=== PATIENT | female | born 1995 | race Caucasian/White ===

== ENCOUNTER 2016-10-03 00:47 | Emergency (ER) | payer OTHER ==
[~2016-10-03] VITALS: Ht 152.4 cm; Wt 79.4 kg
[2016-10-03 00:52] VITALS: TEMP 37; Ht 152.4 cm; Wt 79.4 kg
--- NOTE | 2016-10-03 01:12 | EMERGENCY ROOM VISIT NOTE ---
History Report prepared by Williamibemanuel: Sveta Mccabe Under the Supervision of: Dr. Luis Marmolejo M.D. First contact with patient: 00:56 Chief Complaint: ANKLE PAIN Stated Complaint: INJURED ANKLE History of Present Illness The patient is a 21 year old female who presents to the Emergency Room with complaints of worsening left ankle pain after [place] the movie theatre this [place]. She rates her pain as a 6/10. The patient notes that she tripped down some steps several days ago and had injured this ankle slightly about two weeks ago. She denies any other injury. Source of History: patient Onset: this evening Position: ankle (left) Symptom Intensity: 6/10 Quality: other (ankle pain) Timing: worsening Note: She denies any other injury. Review of Systems See HPI for pertinent positives & negatives. A total of 10 systems reviewed and were otherwise negative. Past Medical & Surgical Medical Problems: (1) No Known Active Medical Problems Family History Cancer Diabetes mellitus Hypertension Social History Smoking Status: Never Smoker Marital Status: in relationship Housing Status: lives with roommate Occupation Status: employed Current/Historical Medications No Active Prescriptions or Reported Meds Allergies Coded Allergies: [place] (Verified Adverse Reaction, Intermediate, hives, 10/03/16) Physical Exam Vital Signs Date Time Temp Pulse Resp B/P Pulse Ox O2 Delivery O2 Flow Rate FiO2 10/03/16 01:40 108 18 145/98 98 10/03/16 00:52 37.0 123 20 146/90 100 Room Air Physical Exam GENERAL: Patient is a healthy-appearing well-nourished HEAD: Normocephalic atraumatic EYES: Ocular movements intact pupils equal and react to light OROPHARYNX mucous membranes are moist no exudates present no erythema or edema present NECK: Supple no nuchal rigidity CHEST: Good equal expansion LUNGS: Clear and equal to auscultation CARDIAC: Normal S1 and S2 ABDOMEN: Soft nontender no guarding BACK: No CVA tenderness EXTREMITIES: No pain upon palpation normal muscle strength in all groups no clubbing cyanosis or edema NEURO: Patient is following commands is answering questions appropriately. Alert and oriented x3 Cranial Nerves 2-12 grossly intact Medical Decision & Procedures ER Provider Diagnostic Interpretation: X-ray results as stated below per interpretation by me: 3 view of the left ankle: Shows no fracture, dislocation, or subluxation. ED Course 0058: Past medical records reviewed. The patient was evaluated in room C2. A complete history and physical examination was performed. 0112: Upon reexamination the patient is doing well. I discussed results and treatment plan with the patient. She verbalizes agreement and understanding. The patient is ready for discharge. Medical Decision The patient is a 21 year old female who presents to the ED with complaints of left ankle pain. Differential diagnoses include: ankle fracture, ankle dislocation, ankle subluxation. This is a 21-year-old female who presents emergency part complaining of ankle pain. The patient is refusing pain medication in the emergency department. X- rays do not show any evidence of fracture dislocation or subluxation. Based on these findings I felt the patient was comfortable enough to be discharged home. The patient was placed on crutches. Patient and significant other were in agreement with the treatment plan. [place] Drug Monitoring Program Search Results: patient reviewed within database Impression Primary Impression: Left ankle pain Scribe Attestation The scribe's documentation has been prepared under my direction and personally reviewed by me in its entirety. I confirm that the note above accurately reflects all work, treatment, procedures, and medical decision making performed by me. Departure Information Dispostion Home / Self-Care Prescriptions No Active Prescriptions or Reported Meds Referrals No Doctor, Assigned (PCP) Forms HOME CARE DOCUMENTATION FORM, IMPORTANT VISIT INFORMATION, School Instructions, Work Instructions Patient Instructions Ankle Sprain, ED Crutch Walking, ED RICE, [facility] Additional Instructions Follow up with DR Chavira's office Take 1000 mg Tylenol every 6 hours You have been examined and treated today on an emergency basis only. This is not a substitute for, or an effort to provide, complete comprehensive medical care. It is impossible to recognize and treat all injuries or illnesses in a single emergency department visit. It is therefore important that you follow up closely with your PCP. Call as soon as possible for an appointment. Thank you for your time and consideration. I look forward to speaking with you again soon. Please don't hesitate to call us if you have any questions. Problem Qualifiers Primary Impression: Left ankle pain Chronicity: acute Qualified Codes: M25.572 - Pain in left ankle and joints of left foot
[2016-10-03 01:40] VITALS: BP 145/98; PULSE 108; O2SAT 98
--- NOTE | 2016-10-03 07:02 | DIAGNOSTIC IMAGING REPORT ---
LEFT ANKLE MIN 3 VIEWS ROUTINE CLINICAL HISTORY: Pt c/o left ankle pain pain COMPARISON: None. DISCUSSION: The bones and joint spaces appear intact. There is no evidence of fracture, dislocation or bony disease. There is no evidence for soft tissue swelling. IMPRESSION: Negative study. Electronically signed by: Hank Borrego M.D. 10/03/2016 7:00 AM Dictated Date/Time: 10/03/2016 7:00 AM
== END 2016-10-03 01:41 | disposition home or self-care (01) ==
LOC: C.EDB 00:48 → C.EDC 01:41
DX: M25.572 Pain in left ankle and joints of left foot (principal); W10.9XXA Fall (on) (from) unspecified stairs and steps, initial encounter; Z83.3 Family history of diabetes mellitus; Z82.49 Family history of ischemic heart disease and other diseases of the circulatory system

== ENCOUNTER 2016-10-09 02:47 | Emergency (ER) | payer OTHER ==
[~2016-10-09] VITALS: Ht 152.4 cm; Wt 88.1 kg
[2016-10-09 03:07] VITALS: Ht 152.4 cm; Wt 88.1 kg
[2016-10-09] MEDS ORDERED: OXYMETAZOLINE HCL 0.05% NA SPR 15 ML BTL ONE (03:32)
[2016-10-09] MEDS ORDERED: BCPILLS PO (03:45)
--- NOTE | 2016-10-09 06:00 | EMERGENCY ROOM VISIT NOTE ---
History First contact with patient: 03:30 Chief Complaint: NOSE BLEED (MINOR) Stated Complaint: BLOODY NOSE History of Present Illness The patient is a 21 year old female who presents to the Emergency Room with complaints of epistaxis that has been intermittent today. Patient has a history of epistaxis since she was a child. She's had four cauterizations to her nasal septum. Patient states she's had a cold this past few days. She was blowing her nose and the bleeding started. This tapered off and restarted tonight when she was blowing her nose again. Patient denies chest pain, dyspnea , fever, chills, headache, lightheadedness or dizziness. She is tolerate by mouth fluids and food. Review of Systems See HPI for pertinent positives & negatives. A total of 10 systems reviewed and were otherwise negative. Past Medical/Surgical History Medical Problems: (1) No Known Active Medical Problems Epistaxis Family History Cancer Diabetes mellitus Hypertension Social History Smoking Status: Never Smoker Marital Status: in relationship Housing Status: lives with roommate Occupation Status: employed, [employer] student Current/Historical Medications Scheduled Control Pills ( Control Pills), 1 TAB PO DAILY Allergies Coded Allergies: [place] (Verified Adverse Reaction, Intermediate, hives, 10/09/16) Physical Exam Vital Signs Date Time Temp Pulse Resp B/P Pulse Ox O2 Delivery O2 Flow Rate FiO2 10/09/16 05:14 114 16 150/97 95 Room Air 10/09/16 03:07 119 18 141/86 98 Room Air Physical Exam VITALS: Vitals are noted on the nurse's note and reviewed by myself. Vital signs stable. GENERAL: Pleasant female, in no acute distress, nondiaphoretic, well-developed well-nourished. SKIN: The skin was without rashes, erythema, edema, or bruising. There is no tenting of the skin. Capillary reflex less than 2 seconds. HEAD: Normocephalic atraumatic. EARS: External auditory canals clear, tympanic membranes pearly arguello without erythema or effusion bilaterally. EYES: Pupils equal round and reactive to light and accommodation. Conjunctivae without injection, sclerae without icterus. Extraocular movements intact. NOSE: Patent, turbinates with inflammation and minimal blood from bilateral Kiesselbach's plexus. No sinus tenderness. MOUTH: Mucous membranes moist. Pharynx without erythema or exudate. Uvula midline. Airway patent. Tongue does not deviate. No pharyngeal bleeding appreciated NECK: Supple without nuchal rigidity. No lymphadenopathy. No thyromegaly. Cervical spine is nontender. No JVD. HEART: Regular rate and rhythm without murmurs gallops or rubs. LUNGS: Clear to auscultation bilaterally without wheezes, rales or rhonchi. No dullness to percussion. No retractions or accessory muscle use. ABDOMEN: Positive bowel sounds x 4. Normal tympanic percussion. Soft, nontender, without masses or organomegaly. Garcia sign negative. No guarding or rebound tenderness. MUSCULOSKELETAL: No muscle atrophy, erythema, or edema noted. NEURO: Patient was alert and oriented to person place and time. Normal sensation to light and sharp touch. No focal neurological deficits. Medical Decision & Procedures Medications Administered Medications (Trade) Dose Ordered Sig/Frandy Route Start Time Stop Time Status Last Admin Dose Admin Oxymetazoline HCl (Afrin 0.05% Nasal Gloster) 75 sprays STK-MED ONCE .ROUTE 10/09/16 03:32 10/09/16 03:34 DC 10/09/16 03:32 75 SPRAYS ED Course Prior records/ancillary studies reviewed. Triage Nursing notes reviewed. Additional history obtained from friend The patient's history was concerning for epistaxis. Differential diagnosis: Etiologies such as anterior epistaxis, coagulopathy, traumatic injury, fracture , septal hematoma, posterior epistaxis as well as other pathologies were entertained. Physical examination findings: As above. Anterior bleeding source. ER treatment provided: Direct pressure Intranasal phenylephrine Hemaderm was applied to the Kiesselbach plexus where the bleeding was coming from and hemostasis was achieved On reassessment the patient felt better. Diagnostics interpreted by me: This appears to be consistent with epistaxis. Patient was observed for over an hour and no rebleeding. She is advised follow-up ENT for her recurrent epistaxis. Patient had a cold recently. She was at her nose quite forcefully today. She's been picking at her nose. She is advised to avoid picking at the area and to keep the area moist. She is advised if the nose rebleeds to apply the nasal clamp with Afrin and not to use it more than 2 days in a row for 15 minutes and that this does not stop to return to the ER. By the evaluation outlined above emergent etiologies such as coagulopathy, traumatic injury, fracture, septal hematoma, posterior epistaxis, as well as others were deemed relatively unlikely. The pt informed about the findings as listed above. All questions were answered and pleased with the treatment. Return instructions were outlined and the patient was discharged in stable condition. Referral: The patient was referred to ENT for a recheck of the current condition Case reviewed with my attending Medical Decision as above Impression Primary Impression: Anterior epistaxis Departure Information Dispostion Home / Self-Care Condition GOOD Referrals [facility] (PCP) Patient Instructions My [facility] Additional Instructions Avoid scratching, rubbing, picking, or blowing your nose. The aws developer your nasal passages the more likely they are to bleed. The following two products are available [id number] at most drug stores/pharmacies. [place] Gloster nasal spray or similar generic saline spray to keep the nose moist 3 to 4 times a day. If bleeding recurs apply direct pressure for an uninterrupted 20 minutes and use the Afrin but not more than 2 days in a row of the Afrin. On and off pressure is much less effective because it will disturb the clots that are forming. If the bleeding is still a problem after 20 minutes or is so heavy despite the pressure return to the emergency department. Continue current medications. For ENT([id number]) follow up call Dr. Kovacs office at [phone] for an appointment this week. Tell the legal secretary receptionist you were referred from the ER. or Follow-up with your primary care physician in 2 to 3 days for a recheck of your current condition.
[2016-10-09 06:06] VITALS: BP 137/82; PULSE 104; O2SAT 97
== END 2016-10-09 06:06 | disposition home or self-care (01) ==
LOC: C.EDB 02:48
DX: R04.0 Epistaxis (principal); Z79.3 Long term (current) use of hormonal contraceptives; Z82.49 Family history of ischemic heart disease and other diseases of the circulatory system; Z83.3 Family history of diabetes mellitus